=== PATIENT | male | born 1955 | race Hispanic/Latino ===

== ENCOUNTER 2019-01-08 07:41 | Outpatient (CLI) | payer BC ==
--- NOTE | 2019-01-08 10:04 | MRI ---
MRI BRAIN AND IACS WITH AND WITHOUT IV CONTRAST: HISTORY: Sudden hearing loss, unspecified, sensorineural hearing loss, tinnitus. Left ear hearing loss. FINDINGS: No evidence of infarct, hemorrhage, mass, midline shift, or abnormal extraaxial fluid collections are seen. No restricted diffusion is noted. No abnormal postcontrast enhancement is seen. The ventric ular size is normal and the basilar cisterns are patent. The visualized paranasal sinuses and mastoi d air cells are well aerated. High-resolution images through the IACs demonstrate no evidence of mass or abnormal postcontrast enha ncement. IMPRESSION: Normal exam. POS: [facility]
== END 2019-01-08 07:42 | disposition home or self-care (01) ==
LOC: MRI 07:41
PROVIDERS: ATTEND Specialist
DX: H90.5 Unspecified sensorineural hearing loss (principal); H93.12 Tinnitus, left ear
CPT/HCPCS: 70553

== ENCOUNTER 2019-08-13 19:00 | Outpatient (CLI) | payer BC | END 2019-08-13 19:01 | disposition home or self-care (01) | LOC: SLEEPLAB 19:00 | PROVIDERS: ATTEND Family Medicine | DX: G47.33 Obstructive sleep apnea (adult) (pediatric) (principal); R53.83 Other fatigue; K21.9 Gastro-esophageal reflux disease without esophagitis; I10 Essential (primary) hypertension; E11.9 Type 2 diabetes mellitus without complications | CPT/HCPCS: 95806 ==

== ENCOUNTER 2019-09-10 20:30 | Outpatient (CLI) | payer BC | END 2019-09-10 20:31 | disposition home or self-care (01) | LOC: SLEEPLAB 20:30 | PROVIDERS: ATTEND Family Medicine | DX: G47.33 Obstructive sleep apnea (adult) (pediatric) (principal); R53.83 Other fatigue; K21.9 Gastro-esophageal reflux disease without esophagitis; R06.83 Snoring; E11.9 Type 2 diabetes mellitus without complications; I10 Essential (primary) hypertension; G47.61 Periodic limb movement disorder | CPT/HCPCS: 95811 ==

== ENCOUNTER 2023-06-21 07:53 | Outpatient (CLI) | payer MEDICARE, BC | END 2023-06-21 07:54 | disposition home or self-care (01) | LOC: RAD 07:53 | PROVIDERS: ATTEND Otolaryngology | DX: R13.12 Dysphagia, oropharyngeal phase (principal); K44.9 Diaphragmatic hernia without obstruction or gangrene | CPT/HCPCS: 74220 ==

== ENCOUNTER 2025-07-15 08:49 | Outpatient (CLI) | payer MEDICARE, BC | END 2025-07-15 08:50 | disposition home or self-care (01) | LOC: ULT 08:49 | PROVIDERS: ATTEND Family Medicine | DX: Z13.6 Encounter for screening for cardiovascular disorders (principal); I70.0 Atherosclerosis of aorta | CPT/HCPCS: 76775 ==